=== PATIENT | male | born 1980 | race African-American/Black ===

== ENCOUNTER 2017-05-07 14:50 | Emergency (ER) | payer SELFPAY ==
[2017-05-07 15:06] VITALS: BP 129/88
[2017-05-07] MEDS ORDERED: NS 0.9% 1000 ML* 1,000 ML BOLUS ONE (15:28)
[2017-05-07] MEDS ORDERED: cefTRIAXone VIAL(*) 1,000 MG in NS 0.9% 50 ML* 50 ML IVPB ONE (15:28)
[2017-05-07] MEDS ORDERED: Ketorolac INJ* 30 MG/ML 1 ML VIAL IV ONE (15:30)
[2017-05-07] MEDS ORDERED: Dexamethasone IV* 4 MG/ML 1 ML (4 MG) IV SLOW PU ONE (15:30)
[2017-05-07] MEDS ORDERED: cefTRIAXone VIAL(*) 1,000 MG VIAL ONE (15:36)
--- NOTE | 2017-05-07 16:07 | UC ---
Throat Pain/Nasal Wes HPI - HPI Summary HPI Summary: 36 yo male with a three day hx of severe right sided throat pain feverish progressively worsening pain...now having a hard time swallowing his saliva no n/v no [place] or myalgias - History of Current Complaint Chief Complaint: UCGeneralIllness Stated Complaint: SWOLLEN,SORE THROAT Time Seen by Provider: 05/07/17 15:21 Hx Obtained From: Patient Onset/Duration: Gradual Onset, Lasting Days Severity: Severe Pain Intensity: 10 Pain Scale Used: 0-10 Numeric - Epiglottits Risk Factors Epiglottis Risk Factors: Negative - Allergies/Home Medications Allergies/Adverse Reactions: Allergies Allergy/AdvReac Type Severity Reaction Status Date / Time No Known Allergies Allergy Verified 05/07/17 15:06 PMH/Surg Hx/FS Hx/Imm Hx Previously Healthy: Yes Other History Of: Negative For: HIV, Hepatitis B, Hepatitis C, Anticoagulant Therapy - Surgical History Surgical History: Yes Surgery Procedure, Year, and Place: abcess in the jaw removal- surgery - Family History Known Family History: Positive: Hypertension, Diabetes Negative: Cardiac Disease - Social History Alcohol Use: Occasionally Alcohol Amount: 3x/week Substance Use Type: Marijuana Substance Use Comment - Amount & Last Used: occassional Smoking Status (MU): Former Smoker Type: Cigarettes Have You Smoked in the Last Year: No Review of Systems Constitutional: Fever - christo Skin: Negative Eyes: Negative ENT: Sore Throat Respiratory: Negative Cardiovascular: Negative Gastrointestinal: Negative Genitourinary: Negative Motor: Negative Neurovascular: Negative Musculoskeletal: Negative Neurological: Negative Psychological: Negative Is Patient Immunocompromised?: No All Other Systems Reviewed And Are Negative: Yes Physical Exam Triage Information Reviewed: Yes Appearance: Well-Appearing, No Pain Distress, Well-Nourished Vital Signs: Initial Vital Signs Temp 100.3 F 05/07/17 15:03 Pulse 86 05/07/17 15:03 Resp 18 05/07/17 15:03 BP 129/88 05/07/17 15:03 Pulse Ox 100 05/07/17 15:03 Eyes: Positive: Conjunctiva Clear ENT: Positive: Hearing grossly normal, Tonsillar swelling, Muffled voice, Hoarse voice. Negative: Uvula midline - uvula slightly deviated to left, fullness right soft palate Neck: Positive: Supple, Nontender, No Lymphadenopathy Respiratory: Positive: Lungs clear, Normal breath sounds, No respiratory distress, No accessory muscle use Cardiovascular: Positive: RRR, No Murmur Musculoskeletal: Positive: ROM Intact, No Edema Neurological: Positive: Alert Psychological Exam: Normal Skin Exam: Normal Re-Evaluation - Re-Evaluation First Eval Re-Evaluation Time: 16:36 Change: Improved - markedly improved, able to swallow Throat Pain/Nasal Course/Dx - Differential Dx/Diagnosis Provider Diagnoses: right peritonsillar abscess Discharge - Discharge Plan Condition: Stable Disposition: HOME Prescriptions: Penicillin VK 500 MG TAB(NF) [Penicillin VK 500 mg Tab] 500 mg PO QID #40 tab Patient Education Materials: Peritonsillar Abscess (ED) Forms: *Work Release Referrals: No Primary Care Phys,NOPCP [Primary Care Provider] - Additional Instructions: you have an early peritonsillar abscess I am hopeful that the medications given will adequately treat this but if symptoms worsen you need to go to the ER sometimes these need to be addressed surgically get rechecked in 2-3 days if not back to normal
== END 2017-05-07 16:55 | disposition home or self-care (01) ==
LOC: UCEAST 14:50
DX: J36 Peritonsillar abscess (principal); F12.90 Cannabis use, unspecified, uncomplicated; Z87.891 Personal history of nicotine dependence
CPT/HCPCS: 87651; 96360; 96374; 96376; 99211; G0463; J0696; J1100; J1885

== ENCOUNTER 2017-10-27 10:23 | Emergency (ER) | payer SELFPAY ==
[2017-10-27 10:41] VITALS: BP 161/98
--- NOTE | 2017-10-27 11:17 | UC ---
UC General HPI - HPI Summary HPI Summary: 1. Patient presents complaining of two-week history of nausea. He denies any actual abdominal pain, vomiting or diarrhea. He denies any recent antibiotic use or unusual travel history. Denies any history of inflammatory bowel disease. Does admit to being a moderate drinker which she describes as 6 beers daily. Had no bloody, dark or tarry stools. 2. Patient is requesting STD testing. Did have a new partner couple weeks ago. Has no urethral discharge, lesions or burning with urination. States it is concerned about STDs given his recent nausea. 3. The third complaint of a bump to his forehead which is been present for years. Notes that on occasion some white material can be squeezed from the site. There is no redness or warmth. - History of Current Complaint Chief Complaint: UCGeneralIllness Stated Complaint: PERSONAL Time Seen by Provider: 10/27/17 11:07 Hx Obtained From: Patient Pain Intensity: 0 Aggravating: NOTHING CHANGES gi SYMPTOMS Associated Signs & Symptoms: Positive: Nausea. Negative: Agitation, Diarrhea, Dysuria, Fever, Melena, Vomiting - Allergy/Home Medications Allergies/Adverse Reactions: Allergies Allergy/AdvReac Type Severity Reaction Status Date / Time No Known Allergies Allergy Verified 10/27/17 10:34 Home Medications: Home Medications NK [No Home Medications Reported] 10/27/17 [History Confirmed 10/27/17] PMH/Surg Hx/FS Hx/Imm Hx Previously Healthy: Yes Other History Of: Negative For: HIV, Hepatitis B, Hepatitis C, Anticoagulant Therapy - Surgical History Surgical History: Yes Surgery Procedure, Year, and Place: abcess in the jaw removal- surgery - Family History Known Family History: Positive: Hypertension, Diabetes Negative: Cardiac Disease - Social History Occupation: Employed Full-time Lives: Alone Alcohol Use: Daily Alcohol Amount: 3x/wee5-6 daily Substance Use Type: Marijuana Substance Use Comment - Amount & Last Used: daily use Smoking Status (MU): Former Smoker Type: Cigarettes Have You Smoked in the Last Year: No When Did the Patient Quit Smoking/Using Tobacco: 2010 - Immunization History Vaccination Up to Date: Yes Review of Systems Constitutional: Negative Skin: Other - BUMP ON FOREHEAD Eyes: Negative ENT: Negative Respiratory: Negative Cardiovascular: Negative Gastrointestinal: Nausea Genitourinary: Negative Motor: Negative Neurovascular: Negative Musculoskeletal: Negative Neurological: Negative Psychological: Negative Is Patient Immunocompromised?: No All Other Systems Reviewed And Are Negative: Yes Physical Exam Triage Information Reviewed: Yes Appearance: Well-Appearing Vital Signs: Initial Vital Signs Temp 99.4 F 10/27/17 10:35 Pulse 65 10/27/17 10:35 Resp 14 10/27/17 10:35 BP 161/98 10/27/17 10:35 Pulse Ox 100 10/27/17 10:35 Vital Signs Reviewed: Yes Eyes: Positive: Conjunctiva Clear ENT: Positive: Normal ENT inspection Neck: Positive: Supple, Nontender, No Lymphadenopathy Respiratory: Positive: Lungs clear, Normal breath sounds Cardiovascular: Positive: RRR, No Murmur Abdomen Description: Positive: Nontender, No Organomegaly, Soft, Other: - No inguinal adenopathy.. Negative: Distended, Guarding Bowel Sounds: Positive: Present Male Genital Exam: Positive: Other - Exam declined given no lesions or discharge. Musculoskeletal: Positive: ROM Intact Neurological: Positive: Alert Psychological: Positive: Age Appropriate Behavior Skin Exam: Normal, Other - 2cm soft tissue mass L forehead. Non tender, no erythema or warmth. Course/Dx - Course Course Of Treatment: non toxic, no acute abdomen. will tx prilosec. need for close f/u for recheck of abdominal complaint stressed. advised of alcohol being possible source for GI symptom. no acute s/s's std thus will defer any tx based on testing. cyst on forehead is not infected. given location and risk for scar, will refer to surgery for removal. - Differential Dx - Multi-Symptom Provider Diagnoses: Soft tissue mass forehead. nausea. probable gastritis. std testing. Discharge - Sign-Out/Discharge Documenting (check all that apply): Discharge/Admit/Transfer - Discharge Plan Condition: Stable Disposition: HOME Referrals: No Primary Care Phys,NOPCP [Primary Care Provider] - - Billing Disposition and Condition Condition: STABLE Disposition: Home
== END 2017-10-27 11:50 | disposition home or self-care (01) ==
LOC: UCCORT 10:23
DX: R22.0 Localized swelling, mass and lump, head (principal); R11.0 Nausea; Z11.3 Encounter for screening for infections with a predominantly sexual mode of transmission; Z87.891 Personal history of nicotine dependence
CPT/HCPCS: 36415; 81003; 86592; 87491; 87591; 99212; G0463